=== PATIENT | male | born 1995 | race American Indian/Alaskan Native ===

== ENCOUNTER 2019-03-29 10:29 | Emergency (ER) | payer SELFPAY ==
[2019-03-29] MEDS ORDERED: ATIVAN IM PRN (11:14)
[2019-03-29] MEDS ORDERED: HALDOL IM PRN (11:14)
[2019-03-29 11:16] LABS: Bilirubin,Urine NEG (Negative); Blood,Urine NEG (Negative); Color,Urine Yellow (Yellow); Protein,Urine <15 mg/dL mg/dL (Negative); Urobilinogen,Urine < 2.0 mg/dL (<2.0)
[2019-03-29 11:32] LABS: Amphetamine Screen,Urine PRESUMPTIVE NEGATIVE; Benzodiazepines Screen,Urine PRESUMPTIVE NEGATIVE; Cannabinoid Screen,Urine PRESUMPTIVE NEGATIVE; Cocaine Screen,Urine PRESUMPTIVE NEGATIVE; Methadone Screen,Urine PRESUMPTIVE NEGATIVE; Opiate Screen,Urine PRESUMPTIVE NEGATIVE
[2019-03-29 11:36] LABS: Basophils # (Auto) 0.1 K/mm3 (0.0-0.1); Basophils % (Auto) 1.4 % (0.0-1.8); Eosinophils # (Auto) 0.2 K/mm3 (0.0-0.4); Eosinophils % (Auto) 5.4 % (0.0-4.3); Hematocrit 47.3 % (35.5-45.6); Hemoglobin 15.8 gm/dl (11.8-15.2); Lymphocytes # (Auto) 1.4 K/mm3 (1.2-5.4); Lymphocytes % (Auto) 33.5 % (13.4-35.0); Mean Corpuscular HGB Conc 33 % (32-34); Mean Corpuscular Volume 86 fl (84-94); Monocytes # (Auto) 0.3 K/mm3 (0.0-0.8); Monocytes % (Auto) 7.4 % (0.0-7.3); Platelet Count 224 K/mm3 (140-440); Red Blood Count 5.49 M/mm3 (3.65-5.03); Red Cell Distribution Width 13.5 % (13.2-15.2)
[2019-03-29 11:44] LABS: BUN/Creatinine Ratio 13; Blood Urea Nitrogen 10 mg/dL (9-20); Calcium 9.3 mg/dL (8.4-10.2); Hemolysis Index 6
--- NOTE | 2019-03-29 12:48 | Emergency Department Report ---
ED General Adult HPI - General Chief complaint: Psych Stated complaint: SI Time Seen by Provider: 03/29/19 11:13 Source: patient, RN notes reviewed Mode of arrival: Ambulatory Limitations: Other (patient appears to be intoxicated) - History of Present Illness Initial comments: This is a 23-year-old gentleman. This patient is not known to this provider previously. The patient presents to the ER with a complaint of painless suicidality. He indicates that he feels depressed that he might want to cut himself. The patient is not homicidal. He denies physical pain. He is feeling like this because apparently he is given an other is , and his indicated that they did not want the patient to be involved with the upper any of the aforementioned child. Therefore, the patient states he feels suicidal. Symptoms are constant, painless, do not radiate anywhere, and patient indicates do not have exacerbating or leading factors -: Gradual Consistency: constant Improves with: none Worsens with: none - Related Data Allergies Allergy/AdvReac Type Severity Reaction Status Date / Time No Known Allergies Allergy Unverified 03/29/19 10:31 ED Review of Systems ROS: Stated complaint: SI Other details as noted in HPI Constitutional: denies: fever Eyes: denies: eye discharge ENT: denies: epistaxis Respiratory: denies: cough Cardiovascular: denies: chest pain Gastrointestinal: denies: abdominal pain Genitourinary: denies: dysuria Musculoskeletal: denies: back pain Neurological: denies: headache Psychiatric: depression, suicidal thoughts. denies: homicidal thoughts ED Past Medical Hx - Past Medical History Hx Psychiatric Treatment: Yes (DEPRESSION) - Social History Smoking Status: Current Every Day Smoker Substance Use Type: None ED Physical Exam - General Limitations: No Limitations General appearance: alert, appears intoxicated - Head Head exam: Present: atraumatic, normocephalic - Eye Eye exam: Present: normal appearance, EOMI. Absent: nystagmus - ENT ENT exam: Present: normal exam, normal orophraynx, mucous membranes moist, normal external ear exam - Neck Neck exam: Present: normal inspection, full ROM. Absent: tenderness, meningismus - Respiratory Respiratory exam: Present: normal lung sounds bilaterally. Absent: respiratory distress - Cardiovascular Cardiovascular Exam: Present: regular rate, normal rhythm, normal heart sounds. Absent: bradycardia, tachycardia, irregular rhythm, systolic murmur, diastolic murmur, rubs, gallop - GI/Abdominal GI/Abdominal exam: Present: soft. Absent: distended, tenderness, guarding, rebound, rigid, pulsatile mass - Rectal Rectal exam: Present: deferred - Extremities Exam Extremities exam: Present: normal inspection, full ROM, other (2+ pulses noted in the bilateral upper, lower extremities. Compartments soft. No long bony tenderness. The pelvis is stable.). Absent: pedal edema, joint swelling, calf tenderness - Back Exam Back exam: Present: normal inspection, full ROM. Absent: tenderness, CVA tenderness (R), CVA tenderness (L), paraspinal tenderness, vertebral tenderness - Neurological Exam Neurological exam: Present: alert, oriented X3, normal gait, other (Extraocular movements intact. Tongue midline. No facial droop. Facial sensation intact to light touch in the V1, V2, V3 distribution bilaterally. 5 and 5 strength in 4 extremities.. Sensation is intact to light touch in 4 extremities.). Absent: motor sensory deficit - Psychiatric Psychiatric exam: Present: suicidal ideation - Skin Skin exam: Present: warm, dry, intact, normal color. Absent: rash ED Course Vital Signs 03/29/19 03/29/19 10:33 11:03 Temperature 99.3 F Pulse Rate 91 H Respiratory 22 15 Rate Blood Pressure 128/86 O2 Sat by Pulse 95 Oximetry ED Medical Decision Making - Lab Data Result diagrams: 03/29/19 10:47 03/29/19 10:47 Vital Signs 03/29/19 03/29/19 10:33 11:03 Temperature 99.3 F Pulse Rate 91 H Respiratory 22 15 Rate Blood Pressure 128/86 O2 Sat by Pulse 95 Oximetry Lab Results 03/29/19 03/29/19 03/29/19 Range/Units 10:47 10:47 10:47 WBC (4.5-11.0) K/mm3 RBC (3.65-5.03) M/mm3 Hgb (11.8-15.2) gm/dl Hct (35.5-45.6) % MCV (84-94) fl MCH (28-32) pg MCHC (32-34) % RDW (13.2-15.2) % Plt Count (140-440) K/mm3 Lymph % (Auto) (13.4-35.0) % Mathews % (Auto) (0.0-7.3) % Eos % (Auto) (0.0-4.3) % Baso % (Auto) (0.0-1.8) % Lymph # (1.2-5.4) K/mm3 Mathews # (0.0-0.8) K/mm3 Eos # (0.0-0.4) K/mm3 Baso # (0.0-0.1) K/mm3 Seg Neutrophils % (40.0-70.0) % Seg Neutrophils # (1.8-7.7) K/mm3 Sodium 140 (137-145) mmol/L Potassium 3.8 (3.6-5.0) mmol/L Chloride 100.7 (98-107) mmol/L Carbon Dioxide 27 (22-30) mmol/L Anion Gap 16 mmol/L BUN 10 (9-20) mg/dL Creatinine 0.8 (0.8-1.5) mg/dL Estimated GFR > 60 ml/min BUN/Creatinine Ratio 13 % Glucose 109 H (75-100) mg/dL Calcium 9.3 (8.4-10.2) mg/dL Total Creatine Kinase (55-170) units/L Urine Color (Yellow) Urine Turbidity (Clear) Urine pH (5.0-7.0) Ur Specific [place] (1.003-1.030) Urine Protein (Negative) mg/dL Urine Glucose (UA) (Negative) mg/dL Urine Ketones (Negative) mg/dL Urine Blood (Negative) Urine Nitrite (Negative) Urine Bilirubin (Negative) Urine Urobilinogen (<2.0) mg/dL Ur Leukocyte Esterase (Negative) Urine WBC (Auto) (0.0-6.0) /HPF Urine RBC (Auto) (0.0-6.0) /HPF Salicylates < 0.3 L (2.8-20.0) mg/dL Urine Opiates Screen Urine Methadone Screen Acetaminophen < 5.0 L (10.0-30.0) ug/mL Ur Barbiturates Screen Ur Phencyclidine Scrn Ur Amphetamines Screen U Benzodiazepines Scrn Urine Cocaine Screen U Marijuana (THC) Screen Drugs of Abuse Note Plasma/Serum Alcohol (0-0.07) % 03/29/19 03/29/19 03/29/19 Range/Units 10:47 10:47 10:47 WBC 4.1 L (4.5-11.0) K/mm3 RBC 5.49 H (3.65-5.03) M/mm3 Hgb 15.8 H (11.8-15.2) gm/dl Hct 47.3 H (35.5-45.6) % MCV 86 (84-94) fl MCH 29 (28-32) pg MCHC 33 (32-34) % RDW 13.5 (13.2-15.2) % Plt Count 224 (140-440) K/mm3 Lymph % (Auto) 33.5 (13.4-35.0) % Mathews % (Auto) 7.4 H (0.0-7.3) % Eos % (Auto) 5.4 H (0.0-4.3) % Baso % (Auto) 1.4 (0.0-1.8) % Lymph # 1.4 (1.2-5.4) K/mm3 Mathews # 0.3 (0.0-0.8) K/mm3 Eos # 0.2 (0.0-0.4) K/mm3 Baso # 0.1 (0.0-0.1) K/mm3 Seg Neutrophils % 52.3 (40.0-70.0) % Seg Neutrophils # 2.1 (1.8-7.7) K/mm3 Sodium (137-145) mmol/L Potassium (3.6-5.0) mmol/L Chloride (98-107) mmol/L Carbon Dioxide (22-30) mmol/L Anion Gap mmol/L BUN (9-20) mg/dL Creatinine (0.8-1.5) mg/dL Estimated GFR ml/min BUN/Creatinine Ratio % Glucose (75-100) mg/dL Calcium (8.4-10.2) mg/dL Total Creatine Kinase 863 H (55-170) units/L Urine Color (Yellow) Urine Turbidity (Clear) Urine pH (5.0-7.0) Ur Specific [place] (1.003-1.030) Urine Protein (Negative) mg/dL Urine Glucose (UA) (Negative) mg/dL Urine Ketones (Negative) mg/dL Urine Blood (Negative) Urine Nitrite (Negative) Urine Bilirubin (Negative) Urine Urobilinogen (<2.0) mg/dL Ur Leukocyte Esterase (Negative) Urine WBC (Auto) (0.0-6.0) /HPF Urine RBC (Auto) (0.0-6.0) /HPF Salicylates (2.8-20.0) mg/dL Urine Opiates Screen Urine Methadone Screen Acetaminophen (10.0-30.0) ug/mL Ur Barbiturates Screen Ur Phencyclidine Scrn Ur Amphetamines Screen U Benzodiazepines Scrn Urine Cocaine Screen U Marijuana (THC) Screen Drugs of Abuse Note Plasma/Serum Alcohol 0.15 H (0-0.07) % 03/29/19 03/29/19 Range/Units 11:03 11:03 WBC (4.5-11.0) K/mm3 RBC (3.65-5.03) M/mm3 Hgb (11.8-15.2) gm/dl Hct (35.5-45.6) % MCV (84-94) fl MCH (28-32) pg MCHC (32-34) % RDW (13.2-15.2) % Plt Count (140-440) K/mm3 Lymph % (Auto) (13.4-35.0) % Mathews % (Auto) (0.0-7.3) % Eos % (Auto) (0.0-4.3) % Baso % (Auto) (0.0-1.8) % Lymph # (1.2-5.4) K/mm3 Mathews # (0.0-0.8) K/mm3 Eos # (0.0-0.4) K/mm3 Baso # (0.0-0.1) K/mm3 Seg Neutrophils % (40.0-70.0) % Seg Neutrophils # (1.8-7.7) K/mm3 Sodium (137-145) mmol/L Potassium (3.6-5.0) mmol/L Chloride (98-107) mmol/L Carbon Dioxide (22-30) mmol/L Anion Gap mmol/L BUN (9-20) mg/dL Creatinine (0.8-1.5) mg/dL Estimated GFR ml/min BUN/Creatinine Ratio % Glucose (75-100) mg/dL Calcium (8.4-10.2) mg/dL Total Creatine Kinase (55-170) units/L Urine Color Yellow (Yellow) Urine Turbidity Clear (Clear) Urine pH 5.0 (5.0-7.0) Ur Specific [place] 1.019 (1.003-1.030) Urine Protein <15 mg/dl (Negative) mg/dL Urine Glucose (UA) Neg (Negative) mg/dL Urine Ketones Neg (Negative) mg/dL Urine Blood Neg (Negative) Urine Nitrite Neg (Negative) Urine Bilirubin Neg (Negative) Urine Urobilinogen < 2.0 (<2.0) mg/dL Ur Leukocyte Esterase Neg (Negative) Urine WBC (Auto) 1.0 (0.0-6.0) /HPF Urine RBC (Auto) 2.0 (0.0-6.0) /HPF Salicylates (2.8-20.0) mg/dL Urine Opiates Screen Presumptive negative Urine Methadone Screen Presumptive negative Acetaminophen (10.0-30.0) ug/mL Ur Barbiturates Screen Presumptive negative Ur Phencyclidine Scrn Presumptive negative Ur Amphetamines Screen Presumptive negative U Benzodiazepines Scrn Presumptive negative Urine Cocaine Screen Presumptive negative U Marijuana (THC) Screen Presumptive negative Drugs of Abuse Note Disclamer Plasma/Serum Alcohol (0-0.07) % - Medical Decision Making Differential diagnosis, including but not limited to: Alcohol intoxication, depression, mood disorder, suicidality Assessment and plan: 23-year-old gentleman who is clinically intoxicated, endorsing suicidality with plan to harm himself. He is afebrile with reassuring vital signs. His physical examination is unremarkable. Screening laboratory studies reviewed and are unremarkable. Creatinine kinase is 863 reviewed and appreciated. Given young age, normal renal function, lack of documented medical comorbidities and unremarkable physical examination, this will most likely decrease on its own with copious oral hydration. He does not require IV fluids for additional evaluation at this time. Patient is placed on a 1013 for suicidality, psychiatric consultation is requested, at this point in time, the patient does not appear to have an immediate medical contraindication to psychiatric admission, evaluation, consultation and placement. Critical care attestation.: If time is entered above; I have spent that time in minutes in the direct care of this critically ill patient, excluding procedure time. ED Disposition Clinical Impression: Medical clearance for psychiatric admission Alcohol intoxication Qualifiers: Complication of substance-induced condition: uncomplicated Qualified Code(s): F10.920 - Alcohol use, unspecified with intoxication, uncomplicated Disposition: DC/TX-65 PSY HOSP/PSY UNIT Is pt being admited?: No Does the pt Need Aspirin: No Condition: Good
--- NOTE | 2019-03-29 15:47 | Consultation ---
History of Present Illness - Reason for Consult Consult date: 03/29/19 Reason for consult: Mental Health Evaluation Requesting physician: TEOFILO GUPTA - Chief Complaint Chief complaint: 'I was drunk" - History of Present Psychiatric Illness 23 y.o. AA male who presented to the ER for SI's and ETOH. Today the patient was calm and cooperative during the assessment. He stated that he was told by his girlfriend that she do not want to be in a relationship anymore. He stated that he was "drunk" when they had the conversation. He stated that he felt like he would be alone so he thought about cutting himself with a knife that wasn't sharp (no cuts/lacerations on the patient's arms). He stated that he didn't want to kill himself,, he stated "A lot of what I did came from the liquor." He stated that he drink alcohol (etoh) on the weekend "typically." He stated that he do not drink during the week. He denies SI/HI's and AVH's. He denies a hx of self harm. He denies erratic sleep and a poor appetite. He denies recreational drug use. Medications and Allergies Allergies Allergy/AdvReac Type Severity Reaction Status Date / Time No Known Allergies Allergy Unverified 03/29/19 10:31 Active Meds: Active Medications Haloperidol Lactate (Haldol) 5 mg IM Q6HR PRN PRN Reason: Agitation Lorazepam (Ativan) 2 mg IM Q4HR PRN PRN Reason: Agitation Past psychiatric history - Past Medical History Past Medical History: No medical history Past Surgical History: No surgical history - past Psychiatric treatment and history psychiatric treatment history: denies a psy hx and fam psy hx. - Social History Social history: other (Reside with girlfriend) Mental Status Exam - Vital signs Last Vital Signs Temp 99.3 F 03/29/19 10:33 Pulse 91 H 03/29/19 10:33 Resp 15 03/29/19 11:03 BP 128/86 03/29/19 10:33 Pulse Ox 95 03/29/19 10:33 - Exam Narrative exam: MSE: Appearance: calm, cooperative Behavior: regular eye contact Speech: somewhat hyper verbal Mood: "okay" Affect: congruent to mood Thought Process: logical Thought Content: denies SI/HI's and AVH's Motor Activity: sitting up in bed Cognition: A/O x3 Insight:variable to fair Judgment: variable Results Result Diagrams: 03/29/19 10:47 03/29/19 10:47 Abnormal lab results 03/29/19 03/29/19 03/29/19 Range/Units 10:47 10:47 10:47 WBC (4.5-11.0) K/mm3 RBC (3.65-5.03) M/mm3 Hgb (11.8-15.2) gm/dl Hct (35.5-45.6) % Carlton % (Auto) (0.0-7.3) % Eos % (Auto) (0.0-4.3) % Glucose 109 H (75-100) mg/dL Total Creatine Kinase (55-170) units/L Salicylates < 0.3 L (2.8-20.0) mg/dL Acetaminophen < 5.0 L (10.0-30.0) ug/mL Plasma/Serum Alcohol (0-0.07) % 03/29/19 03/29/19 03/29/19 Range/Units 10:47 10:47 10:47 WBC 4.1 L (4.5-11.0) K/mm3 RBC 5.49 H (3.65-5.03) M/mm3 Hgb 15.8 H (11.8-15.2) gm/dl Hct 47.3 H (35.5-45.6) % Carl[place] % (Auto) 7.4 H (0.0-7.3) % Eos % (Auto) 5.4 H (0.0-4.3) % Glucose (75-100) mg/dL Total Creatine Kinase 863 H (55-170) units/L Salicylates (2.8-20.0) mg/dL Acetaminophen (10.0-30.0) ug/mL Plasma/Serum Alcohol 0.15 H (0-0.07) % All other labs normal. Assessment and Plan Assessment and plan: Impression: MDD, single episode. Alcohol Intoxication. Today the patient was calm and cooperative during the assessment. No acute withdrawal noted (etoh) DDx: Substance Induced Mood DO, Alcohol Use DO Recommendation/Plan: Continue 1013 and gather collateral information. Discussed risks/benefits of SSrI's with the patient, he prefer talk therapy at this time. Monitor patient for etoh withdrawals. Dispo: Once collateral information is gathered, proper dispo will be determined. Staffed with Dr Ayaan Nath.
--- NOTE | 2019-03-30 09:35 | Progress Note ---
Subjective - Reason for Consult Consult date: 03/30/19 Reason for consult: Psyhciatry Follow - Chief Complaint Chief complaint: 'I will do better" 23 y.o. AA male who presented to the ER for SI's and ETOH. Today the patient was calm and cooperative during the assessment. He stated hat he will move on from "this" once discharged. He is adamant that he made a mistake and didn't want to kill himself prior to his arrival il the ER. He denies SI/HI's and AVH's. Mental Status Exam - Vital signs Last Vital Signs Temp 98.1 F 03/30/19 07:00 Pulse 64 03/30/19 07:00 Resp 18 03/30/19 07:00 BP 124/86 03/30/19 07:00 Pulse Ox 96 03/30/19 07:00 - Exam Narrative exam: MSE: Appearance: calm, cooperative Behavior: regular eye contact Speech: regular rate and tone Mood: "okay" Affect: congruent to mood Thought Process: logical Thought Content: denies SI/HI's and AVH's Motor Activity: sitting up in bed Cognition: A/O x3 Insight:variable to fair Judgment: fair Assessment and Plan Impression: MDD, single episode. Alcohol Intoxication. Today the patient was calm and cooperative during the assessment. No acute withdrawal noted (etoh) DDx: Substance Induced Mood DO, Alcohol Use DO Recommendation/Plan: Reevaluate the patient's 1013 in 24 hours. Discussed risks/benefits of SSRI's with the patient, he prefer talk therapy at this time. Monitor patient for etoh withdrawals. Dispo: If the patient's 1013 is rescinded in 24 hours, he can follow up with [facility] for outpatient psy services. Will staff with Dr Ayaan Nath.
[2019-03-31] MEDS ORDERED: D50W (25GM) Syringe IV ONE (13:59)
--- NOTE | 2019-03-31 14:01 | Progress Note ---
Subjective - Reason for Consult Consult date: 03/31/19 Reason for consult: Psychiatric Follow-up Evaluation - Chief Complaint Chief complaint: "I'm wonderful." Patient is a 23 y.o. AA male who presented to the ER for SI's and ETOH. Today the patient is calm and cooperative during the assessment. He stated hat he will move on from "this" once discharged. He is adamant that he made a mistake and didn't want to kill himself prior to his arrival to the ER. He denies SI/HI's, AVH's, and delusions. He reports " I plan on leaving the alcohol alone. This only happen because I was intoxicated out of my mind. I just want to leave and pray I still have my job." Mental Status Exam - Vital signs Last Vital Signs Temp 98.6 F 03/31/19 09:08 Pulse 85 03/31/19 09:08 Resp 16 03/31/19 09:08 BP 112/78 03/31/19 09:08 Pulse Ox 100 03/31/19 09:08 - Exam Narrative exam: Mental Status Exam: Appearance: calm, cooperative Behavior: regular eye contact Speech: regular rate and tone Mood: "I feel wonderful" Affect: congruent to mood Thought Process: logical Thought Content: denies SI/HI's, AVH's, and delusions Motor Activity: sitting up in bed Cognition: A/O x 3 Insight:variable to fair Judgment: fair Assessment and Plan Impression: MDD, single episode. Alcohol Intoxication. Today the patient is calm and cooperative during the assessment. No acute withdrawal noted (etoh). He denies SI/HI's, A/VH's, and delusions. At the time of discharge patient is in no imminent danger to self/others. Presents cooperative and compliant. discussed coping skills and the importance of abstaining from recreational alcohol use. DDx: Substance Induced Mood DO, Alcohol Use DO Recommendation/Plan: 1. Will rescind 1013. No longer meets criteria. 2. Discussed risks/benefits of SSRI's with the patient, he prefer talk therapy at this time. Monitor patient for etoh withdrawals. 3. Discussed the importance of refraining from the use of recreational alcohol use. Disposition: Patient will follow up with [facility] for outpatient psychiatric services. Staffed with Dr. Ayaan Nath.
[2019-03-31 20:32] VITALS: BP 126/74
== END 2019-03-31 21:55 | disposition home or self-care (01) ==
LOC: ED 10:29 → EEVIPCON 10:29 → ED 03-31 21:55
DX: F32.9 Major depressive disorder, single episode, unspecified (principal); F10.129 Alcohol abuse with intoxication, unspecified; F17.200 Nicotine dependence, unspecified, uncomplicated
CPT/HCPCS: 36415; 80048; 80307; 80320; 81001; 82550; 85025; 99284; G0480